=== PATIENT | male | born 1985 | race Caucasian/White ===

== ENCOUNTER → 2021-05-13 12:49 | Outpatient (BNVA) | payer OTHER, SELFPAY | PROVIDERS: Visit Provider Internal Medicine | DX: M96.1 Postlaminectomy syndrome, not elsewhere classified (principal); G89.29 Other chronic pain; M54.5 Low back pain; M79.605 Pain in left leg; M79.604 Pain in right leg; Z87.891 Personal history of nicotine dependence; Z88.8 Allergy status to other drugs, medicaments and biological substances; Z79.899 Other long term (current) drug therapy | CPT/HCPCS: 99202 ==

== ENCOUNTER 2021-05-30 10:35 | Outpatient (REF) | payer OTHER, SELFPAY ==
--- NOTE | ~2021-05-30 | XR_ITS ---
EXAMINATION: THORACIC AND LUMBAR SPINE CLINICAL INFORMATION: Pre-MRI screening. History of trial spinal cord stimulator insertion's.. COMPARISON: None TECHNIQUE: AP thoracic. Lumbar spine 2 views. FINDINGS: AP thoracic spine: There are no electrodes seen within the spinal canal. Lumbar spine: The bilateral pedicular screws at and L4, L5 and S1 vertebra with disc prosthesis at and L4-L5 and L5/S1 disc levels. No spinal electrode seen. XR/XR pre mri screening IMPRESSION: No spine fractures seen in the thoracic or lumbar spine. There is disc fusion with hardware at the L4-L5 and L5-S1 disc levels.
--- NOTE | ~2021-05-30 | MR_ITS ---
EXAMINATION: MR LUMBAR SPINE WITHOUT CONTRAST CLINICAL INFORMATION: Post laminectomy syndrome. Severe low back pain with tingling in lower extremities. COMPARISON: None TECHNIQUE: MRI of the lumbar spine was obtained using routine sequences without contrast. FINDINGS: VERTEBRAL BODIES AND PARASPINAL STRUCTURES: The marrow signal is homogeneous. The patient is status post posterior lumbar interbody fusion at the L4-L5 and L5-S1 levels with hardware instrumentation. Alignment remains anatomic. The remaining discs are well hydrated. No marrow or soft tissue edema is seen. The paraspinal soft tissues are otherwise unremarkable. The imaged bony pelvis is normal. CONUS MEDULLARIS AND CAUDA EQUINA: Normal, terminating at the level of T12. No lower cord signal abnormality is seen. The cauda equina nerve roots are normal. SPINAL LEVELS: L1-L2: Minimal annular bulge. No central canal stenosis or foraminal narrowing. L2-L3 and L3-L4: Well-hydrated normal appearance of the discs without central canal stenosis or foraminal narrowing. L4-L5: Fusion hardware in place with facet arthropathy. No central canal stenosis or foraminal narrowing. L5-S1: Fusion hardware in place with facet arthrosis. No central canal stenosis or foraminal narrowing. MR/MR lumbar spine wo con IMPRESSION: Status post posterior lumbar interbody fusion at the L4-L5 and L5-S1 levels without central canal stenosis or foraminal narrowing. No malalignment. Remainder of the lumbar spine is relatively normal.
== END 2021-05-30 10:36 | disposition home or self-care (01) ==
LOC: HO.MRI 10:35
PROVIDERS: Visit Provider Internal Medicine
DX: M96.1 Postlaminectomy syndrome, not elsewhere classified (principal)
CPT/HCPCS: 72148

== ENCOUNTER 2021-07-31 10:45 | Outpatient (REF) | payer OTHER, SELFPAY ==
[2021-07-31 13:36] LABS: MANUAL DIFF FLAG NO
[2021-07-31 13:37] LABS: Basophils Percent Auto 0.4 % (0-2); Eosinophils Absolute Auto 0.2 X10*3/uL (0.0-0.4); Eosinophils Percent Auto 3.6 % (0-4); Hematocrit 44.3 % (42.0-52.0); Hemoglobin 14.6 g/dl (14.0-18.0); Imm Gran Abs Auto 0.02 X10*3/uL (0.00-0.03); Imm Gran Pct Auto 0.3 % (0.0-0.4); Lymphocytes Absolute Auto 1.4 X10*3/uL (1.2-4.9); Lymphocytes Percent Auto 20.9 % (20-40); Mean Corpuscular Hemoglobin 29.1 pg (27.0-33.0); Mean Corpuscular Volume 88.2 fL (80.0-98.0); Mean Platelet Volume 9.6 fL (9.4-12.4); Monocytes Absolute Auto 0.6 X10*3/uL (0.1-1.2); Monocytes Percent Auto 8.2 % (2-11); Neutrophils Absolute Auto 4.5 x10*3/uL (2.0-8.3); Neutrophils Percent Auto 66.6 % (45-73); Platelet Count 283 X10*3/uL (160-400); Red Blood Count 5.02 X10*6/uL (4.60-5.80); Red Cell Distribution Width 12.4 % (11.0-16.0); White Blood Count 6.7 X10*3/uL (4.8-10.8)
[2021-07-31 14:46] LABS: Alanine Aminotransferase 27 U/L (0-40); Albumin Level 4.7 g/dL (3.5-5.0); Alkaline Phosphatase 33 U/L (39-117); Anion Gap 14 (12-20); Aspartate Amino Transferase 23 U/L (5-37); Bilirubin Total 0.7 mg/dL (0.0-1.0); Blood Urea Nitrogen 9 mg/dL (9-16); Calcium 10.1 mg/dL (8.4-10.2); Carbon Dioxide 28 mmol/L (22-29); Chloride 105 mmol/L (96-108); Cholesterol 216 mg/dL; Estimated Glomerular Filt Rate > 60; Glucose Fasting 97 mg/dL (60-99); HDL Cholesterol 59 mg/dL; LDL Cholesterol Calculated 140 mg/dl; Potassium 4.5 mmol/L (3.3-5.1); Sodium 142 mmol/L (135-145); Total Protein 7.4 g/dL (6.5-8.0); Triglycerides 87 mg/dL
[2021-07-31 14:56] LABS: TSH reflex Free T4 1.12 uIU/mL (0.32-4.0)
== END 2021-07-31 10:46 | disposition home or self-care (01) ==
LOC: HO.WFDLDS 10:45
PROVIDERS: Visit Provider Family Medicine
DX: Z00.00 Encounter for general adult medical examination without abnormal findings (principal)
CPT/HCPCS: 36415; 80053; 80061; 84443; 85025

== ENCOUNTER → 2021-08-16 09:46 | Outpatient (BNVA) | payer OTHER, SELFPAY | PROVIDERS: PCP Family Medicine; Visit Provider Internal Medicine | DX: M96.1 Postlaminectomy syndrome, not elsewhere classified (principal); M54.9 Dorsalgia, unspecified | CPT/HCPCS: 99212 ==